=== PATIENT | female | born 1960 | race Caucasian/White ===

== ENCOUNTER → 2017-06-13 | Outpatient (CLI) | payer OTHER ==
[~2017-06-13] MED LIST: LISINOPRIL-HCT1 EAC2; METOPROLOL; Z.0.NAPROXEN500 MG PO
--- NOTE | 2017-06-13 09:36 | Diagnostic Imaging Report ---
PROCEDURE:US LIVER COMPARISON:None. INDICATIONS:Elevated LFTs TECHNIQUE: Chaparro-scale and color Doppler transverse and longitudinal images of the right upper quadrant of the abdomen were obtained. FINDINGS: Liver: Measures 17.8 cm in right mid-clavicular line. Increased echogenicity. No masses. Main portal vein: Measures 1.0 cm with normal forward flow. Gallbladder: Removed Common Bile Duct: Measures 0.3 cm Sonographic Ruggiero's sign: Negative Right kidney: Measures 13.9 x 5.2 x 5.8 cm. Normal echogenicity. No solid masses or hydronephrosis. Pancreas: The tail is not well visualized. Inferior vena cava: Patent Aorta: Within normal limits Ascites: None in the right upper quadrant of the abdomen. CONCLUSION: Slightly enlarged echogenic liver without evidence of mass. Aaron Major D.O. Dictated by: Aaron Major D.O. on 06/13/2017 at 9:44 Electronically approved by: Aaron Major D.O. on 06/13/2017 at 9:44
== END ==
LOC: US 07:20
PROVIDERS: ATTEND Family Medicine
DX: R79.89 Other specified abnormal findings of blood chemistry (principal); R94.5 Abnormal results of liver function studies
CPT/HCPCS: 76705

== ENCOUNTER → 2022-02-14 | Day surgery (SDC) | payer OTHER ==
[~2022-02-14] MED LIST changes: +FENTANYL CITRATE/PF 100MCG/2 ML INJ ONE; +HYOSCYAMINE SULFATE 0.5 MG/ML INJ ONE; +LIDOCAINE HCL 2% LOCAL INJ 5 ML SDV VIAL INJ ONE; +MIDAZOLAM HCL 2 MG/2 ML VIAL ONE; +PROPOFOL IV EMULSION 10 MG/ML 20 ML VIAL ONE; +SIMETHICONE 40 MG/0.6 ML BTL ONE; +VITAMIN D3 COM1 EACH PO
[2022-02-14 14:50] VITALS: BP 133/71
== END | disposition home or self-care (01) ==
LOC: OR 10:22
PROVIDERS: ATTEND Internal Medicine Gastroenterology
DX: Z09 Encounter for follow-up examination after completed treatment for conditions other than malignant neoplasm (principal); D12.4 Benign neoplasm of descending colon; K52.9 Noninfective gastroenteritis and colitis, unspecified; K57.30 Diverticulosis of large intestine without perforation or abscess without bleeding; K64.8 Other hemorrhoids; Z71.3 Dietary counseling and surveillance; E66.9 Obesity, unspecified; M54.9 Dorsalgia, unspecified; Z71.89 Other specified counseling; Z01.810 Encounter for preprocedural cardiovascular examination; Z68.35 Body mass index [BMI] 35.0-35.9, adult
CPT/HCPCS: 45380; 93005; J1980; J2001; J2250; J2704; J3010; 45378